=== PATIENT | male | born 1975 | race Hispanic/Latino ===

== ENCOUNTER 2018-12-11 08:06 | Day surgery (SDC) | payer OTHER ==
[2018-12-02 08:46] VITALS: BMI 37.7
[2018-12-11] MEDS ORDERED: Midazolam 2 MG/2 ML VIAL ONE (11:54)
[2018-12-11] MEDS ORDERED: ceFAZolin 1 gm in NS 2 GM/200 ML BAG IVPB ONE ×2 (11:54→21:16)
[2018-12-11] MEDS ORDERED: Propofol 10 mg/ml Inj (20 ML) ONE (11:54)
[2018-12-11] MEDS ORDERED: Rocuronium 10 mg/ml (10 ml) ONE ×2 (12:28→13:29)
[2018-12-11] MEDS ORDERED: Succinylcholine Chloride 20 mg/ml Syr (5 ml) IV ONE (12:28)
[2018-12-11] MEDS ORDERED: Bupivacaine-Epi 0.5%-1:200,000 PF Inj ONE (13:30)
[2018-12-11] MEDS ORDERED: Neostigmine 1:1000 (1 mg/ml) Inj ONE (14:16)
[2018-12-11] MEDS ORDERED: Morphine 4 MG/ML VIAL ONE ×2 (16:11→16:51)
[2018-12-11] MEDS: HYDROmorphone 0.5 mg/0.5 ml ISec IVP PRN ×3 (17:21→17:52)
[2018-12-11] MEDS ORDERED: ceFAZolin IV 2 gm in Dextrose 2 GM/50 ML BAG IVPB STA (20:30)
[2018-12-11 21:23] LABS: BASO % 0.1 % (0.0-2.0); EOS % 0.1 % (0.0-4.0); HEMOGLOBIN 12.6 g/dL (12.0-18.0); LYMPH # 1.1 K/uL (1.0-4.3); LYMPH % 7.8 % (20.0-40.0); MEAN CELL VOLUME 98.6 fL (80.0-94.0); MEAN CORPUSCULAR HEMOGLOBIN 34.1 pg (27.0-31.0); MEAN CORPUSCULAR HGB CONC 34.6 g/dL (33.0-37.0); MEAN PLATELET VOLUME 7.7 fL (7.2-11.7); MONO # 1.1 K/uL (0.0-0.8); MONO % 7.8 % (0.0-10.0); NEUT # 12.1 K/uL (1.8-7.0); NEUT % 84.2 % (50.0-75.0); NRBC % 0.1 % (0.0-2.0); PLATELET COUNT 269 K/uL (130-400); RED CELL DISTRIBUTION WIDTH 13.2 % (11.5-14.5); WHITE BLOOD COUNT 14.4 K/uL (4.8-10.8)
[2018-12-11] MEDS ORDERED: ceFAZolin 2 GM in Sodium Chloride 0.9% 100 ML IVPB STA (21:25)
[2018-12-11 21:45] LABS: LYMPHOCYTE 8 % (20-40); MONOCYTE 9 % (0-10); NEUTROPHIL 83 % (50-75); PLATELET ESTIMATE NORMAL (NORMAL); TOTAL CELLS COUNTED 100
[2018-12-11 21:50] LABS: ALB/GLOB RATIO 1.3 (1.0-2.1); ALBUMIN 4.1 g/dL (3.5-5.0); ALT/SGPT 21 U/L (21-72); AMYLASE 75 U/L (30-110); AST/SGOT 48 U/L (17-59); BLOOD UREA NITROGEN 17 mg/dL (9-20); CALCIUM 8.8 mg/dl (8.6-10.4); GFR NON-AFRICAN AMERICAN > 60; URINE BILIRUBIN NEGATIVE (NEGATIVE); URINE BLOOD NEGATIVE (NEGATIVE); URINE CLARITY Clear (Clear); URINE COLOR Yellow (YELLOW); URINE GLUCOSE (UA) NORMAL (Normal); URINE HYALINE CAST 0-2 /lpf (0-2); URINE LEUKOCYTE ESTERASE NEG Leu/uL (Negative); URINE PROTEIN NEGATIVE (NEGATIVE); URINE UROBILINOGEN NORMAL mg/dL (0.2-1.0)
[2018-12-11] MEDS ORDERED: Bacitracin Ointment 30 GM TUBE TOP ONE (22:21)
[2018-12-11 22:30] LABS: HEPATITIS B SURFACE AG Negative (NEGATIVE)
--- NOTE | 2018-12-11 22:53 | CP.PCM.PN ---
Subjective - Date & Time of Evaluation Date of Evaluation: 12/11/18 Time of Evaluation: 22:26 - Subjective Subjective: I was called by PACU nurse to assess patient secondary to numbness of his chin and also wound of the left lower leg Patient is 42yo M s/p ORIF of left clavicle who is complaining of postop chin numbness prior to discharge. He was seen and assessed. It appears he has a swollen chin with some clean discharge. The swelling is localized around the front chin and does not extend down the neck or mouth. Denies any shortness of breath or dysphagia. There is a small skin breakdown on the right chin where the clean fluid was draining out. Not warm to the touch. Nurse also noticed a skin wound on the left lower leg. It appears to be a skin abrasion of the left proximal fibula about 2x3cm. No bleeding or discharge noticed. Cold compress was applied to the chin follow by bacitracin ointment and dressing. Leg abrasion was dressed with bacitracin and gauze and wrapped with gabrielle bandage. Dr. Pfeiffer was notified of all this findings and agree with the plan. Patient was given the choice of staying overnight for observation ,however, he wanted to go home. He was made aware to return to the hospital if swelling worsens or any other complaints arises. Currently he reports pain 4/10 at the operative site and worsens with movements otherwise no other complaints Objective - Vital Signs/Intake and Output Vital Signs (last 24 hours): Temp Pulse Resp BP Pulse Ox 97.9 F 70 20 144/93 H 98 12/11/18 08:16 12/11/18 08:16 12/11/18 08:16 12/11/18 08:16 12/11/18 08:16 Intake and Output: 12/11/18 12/12/18 18:59 06:59 Intake Total 1700 Balance 1700 - Labs Labs: 12/11/18 21:19 12/11/18 21:19
[2018-12-11 22:56] LABS: HEPATITIS C ANTIBODY NEGATIVE (NEGATIVE)
[2018-12-11 23:24] LABS: HEPATITIS A IGM NEGATIVE (NEGATIVE)
[2018-12-11 23:26] LABS: HEPATITIS B CORE AB NEGATIVE (NEGATIVE)
[2018-12-12 00:02] VITALS: O2SAT 97
[2018-12-12 00:19] VITALS: BP 137/88; PULSE 114; RESP 20; TEMP 99
--- NOTE | 2018-12-12 12:52 | RAD ---
Date of service: 12/11/2018 PROCEDURE: HISTORY: s/p L clavicle ORIF COMPARISON: Comparison made with fluoroscopy study dated 12/11/2018 at 12:46 p.m. TECHNIQUE: Two views of the left clavicle performed FINDINGS: ORIF apparent comminuted fracture left clavicle accomplished by placement of a sideplate attached to the superior margins of the clavicle by multiple threaded screws. The AC joint appears intact IMPRESSION: ORIF comminuted fracture left clavicle as described
--- NOTE | 2018-12-12 12:55 | RAD ---
Date of service: 12/11/2018 PROCEDURE: Intraoperative Fluoroscopy. HISTORY: LEFT CLAVICLE FX FINDINGS: Fluoroscopic assistance was provided. Fluoroscopy time = 77 sec. Radiation dose = 6.16 mGy. Please refer to the operative report from CEASAR Schwartz , MD [facility].
--- NOTE | 2018-12-12 12:58 | RAD ---
Date of service: 12/11/2018 HISTORY: r/o ptx COMPARISON: None available. FINDINGS: LUNGS: Mild atelectasis and or scarring both lower lung roberts left greater than right PLEURA: No significant pleural effusion identified, no pneumothorax apparent. CARDIOVASCULAR: No aortic atherosclerotic calcification present. Heart appears enlarged no pulmonary vascular congestion. OSSEOUS STRUCTURES: ORIF left clavicle. VISUALIZED UPPER ABDOMEN: Normal. OTHER FINDINGS: None. IMPRESSION: Mild atelectasis and/or scarring both lower lung roberts left greater than right
--- NOTE | 2018-12-13 06:35 | PCM.SURG1 ---
Surgeon's Initial Post Op Note - Surgeon's Notes Surgeon: Dilshad Pfeiffer MD [employer] Specialist: Cherise Farrell PA-C Type of Anesthesia: General Endo Pre-Operative Diagnosis: Left shoulder: Displaced, comminuted, segmental mid- shaft clavicle fracture Operative Findings: Left shoulder: Displaced, comminuted, segmental mid-shaft clavicle fracture. (significant interposed soft tissue at fracture fragments that would have most likely caused non-union without surgical intervention, there were significant jose defects) Post-Operative Diagnosis: Left shoulder: Displaced, comminuted, segmental mid-s haft clavicle fracture. (significant interposed soft tissue at fracture fragments that would have most likely caused non-union without surgical intervention, there were significant jose defects) Operation Performed: Left shoulder: #1 Open Reduction and Internal Fixation complex Midshaft Clavicle fracture (complexity modifier added). #2 Bone grafting to jose defects clavicle fracture. #3 Plastics complex closure with soft tissue flap over superior plate, wound measuring approx 10cm Specimen/Specimens Removed: specimen= none. complications= none. Implants=. #1 Synthes 7 hole pre-contoured superior clavicle locking plate with 3.5 and 2.7 locking and non-locking screws. #2 Arthrex 2.5 cc Stimublast allograft putty. Pre and Post-op Exam: I personally examined the pt both in pre-op holding and post-op in PACU. POST-OP PHYSICAL EXAM: surgical dressing c/d/i,. + 5/5 motor strength elbow flex/ext, wrist sup/pron/flex/ext, fingers ext & flex at MCP,PIP,DIP joints, finger abduction/adduction. Sensory intact C5-T2, Axillary/MSC/Radial/Ulnar/Median nerves intact. 2+ RA and UA pulses, BCR all fingers. Denied any SOB or CP, no subjective numbness/tingling Estimated Blood Loss: EBL {In ML}: 50 Blood Products Given: N/A Drains Used: No Drains Post-Op Condition: Good Date of Surgery/Procedure: 12/11/18 Time of Surgery/Procedure: 15:00
--- NOTE | 2018-12-30 12:00 | OP ---
PROCEDURE DATE: 12/11/2018 PREOPERATIVE DIAGNOSIS: Left shoulder displaced, comminuted, segmental midshaft clavicle fracture. POSTOPERATIVE DIAGNOSIS: Left shoulder displaced, comminuted, segmental midshaft clavicle fracture with significant interposed soft tissue at fracture site in between fracture fragments. PROCEDURES: Left shoulder/clavicle: 1. Open reduction and internal fixation complex midshaft clavicle fracture with significant comminution and segmental pattern. 2. Bone grafting two bony defects of clavicle fracture. 3. Plastics, complex closure with soft tissue flap over superior plate, wound measuring approximately 10 cm. SURGEON: Dilshad Pfeiffer MD CAPACITOR TESTER: Cherise Farrell PA-C JUSTIFICATION FOR CAPACITOR TESTER: Cherise Farrell is a certified physician dam tender assistant whose skilled surgical services were an absolute necessity for successful completion of the procedure as he provided skilled surgical assistance with positioning of the patient, positioning of extremity, management of surgical roberts, beach chair positioning, retraction of neurovascular structures, open reduction, placement of temporary fixation hardware, bridge plating, placement of final fixation hardware, protection of underlying brachial plexus and major neurovascular structures while drilling and placement of orthopedic hardware, placement of bone graft, Plastics complex wound closure, fitting and placement of shoulder immobilization sling. Cherise Farrell was present for the entire case and was an absolute necessity for successful completion of the procedure. TYPE OF ANESTHESIA: General endotracheal anesthesia. ESTIMATED BLOOD LOSS: 50 mL. SPECIMENS: None. COMPLICATIONS: None. DRAINS: None. DISPOSITION: The patient was extubated and transferred to PACU in stable condition and tolerated the procedure well. IMPLANTS: 1. DePuy Synthes: A 7-hole precontoured superior clavicle locking plate with 3.5 and 2.7 locking and nonlocking screws. 2. Arthrex 2.5 mL StimuBlast allograft putty. INDICATIONS FOR SURGERY: The patient is a 42-year-old male, right-hand dominant with no significant past medical history, who presents to the office for the first time under my care with a new complaint of left shoulder/clavicle pain and deformity/swelling as well as left-sided rib pain on in my office since injury on 11/11/2018. He states that on 11/11/2018, he fell down a flight of stairs in his building, landing on his left shoulder resulting in immediate 10/10 pain, localized to the clavicle with obvious deformity as well as left-sided upper rib pain. He denies seeing the bone or any numbness or tingling in the left upper extremity. No obvious disruption in blood flow, no weakness distally or change in normal function. He was evaluated at the [facility] ER at the same day and after review of imaging and evaluation by the orthopedic resident on-call, he was diagnosed with a displaced, comminuted, segmental midshaft left clavicle fracture and possible left-sided rib fractures. He was placed in the sling and instructed to follow up with an orthopedic surgeon as an outpatient. Initial presentation in the office on 11/13/2018 yielded a physical exam consistent with an obvious and significant deformity at the left shoulder/clavicle along the midshaft of the clavicle, significant swelling, significant ecchymosis, with skin intact. The neurovascular exam of the left upper extremity was intact with 2+ radial artery pulse and ulnar artery pulse, sensory from C5 to T2 intact including axillary nerve, radial nerve, medial nerve, ulnar nerve, musculocutaneous sensory branches, 5/5 motor strength, elbow flexion/extension, wrist supination/pronation/flexion/extension, all fingers flexion and extension of all joints as well as finger abduction and adduction. He denied any shortness of breath or chest pain, no LOC, no subjective numbness or tingling, no headaches, no nausea or vomiting, no difficulty with breathing. X-rays in the office confirmed left clavicle with a displaced, comminuted, segmental shortened midshaft clavicle fracture with high suspicion for significant interposed soft tissue between the fracture fragments. He was placed in a shoulder immobilizer sling and we had a long discussion about the pros and cons of surgery. There was also a high suspicion for left-sided upper rib fracture despite negative x-rays in the office. He was referred for further detailed imaging of the ribs and the clavicle/shoulder. CT of the left shoulder/clavicle/left upper chest wall done at [facility] on 11/23/2018 was read as: 1. Displaced, comminuted midshaft clavicle fracture. 2. No widening of AC interval. 3. Atelectasis, left lung. 4. Nondisplaced fractures, posterolateral aspect third and fifth ribs. MRI of left shoulder done at [facility] on 11/23/2018 was read as: 1. Midshaft clavicle fracture. 2. Low grade AC joint sprain, AC ligaments intact. 3. Moderate rotator cuff tendinosis/strain. 4. Subacromial/subdeltoid bursitis. 5. Partial rotator cuff tear. Comparison views done in the office of bilateral clavicles revealed significant shortening as well of the fractured left side clavicle compared to the right. After review of the MRI and CT in the office at followup on 12/01/2018, we had a long discussion about treatment options. The followup x-rays done in the office on 12/01/2018 showed no interval change in the fracture fragments with a high-degree of concern that the interposed soft tissue between the fracture fragments was entrapped and that this would lead to a significant nonunion. The patient was laid off from his previous job and was in between jobs at this point, attempting to return to work as soon as possible and was in the middle of interviewing and has been offered jobs. 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 With the concern for a possible nonunion and need for surgery months later, we discussed the indication for open reduction and internal fixation of this displaced, comminuted, segmental, short and midshaft clavicle fracture. He was indicated for the open reduction and internal fixation with the risks, benefits, and alternatives discussed at length with the patient. Risks included, but not limited to infection, neurovascular damage, hardware irritation, and need for future surgery including removal of hardware, nonunion, malunion, failure of hardware, neurovascular damage including injury to the brachial plexus and the subclavian artery and vein, loss of function, loss of limb, pneumothorax and other pulmonary complications, wound complications, stiffness, development of chronic pain and disability, development of blood clots including DVT and PE, anesthesia reactions including . After answering all of his questions, they understood the risks and wished to proceed with surgery. He watched surgical animation videos and diagnosis animation videos and stated they had a good understanding of the procedure as well as the diagnosis. I explained to him that with the significant segmental and comminuted pattern of this midshaft clavicle fracture, there may be a resulting significant bony defect, which would benefit from placement of bone graft for which he agreed to and with consent as well. The rib fractures on the left initially did cause pain with deep inhalation, but after two weeks of rest post injury, he was able to perform deep inhalation without any pain with significant improvement in his rib pain. He was referred to primary care physician for a medical clearance, which did take an extra week delaying from his initial scheduled date of 11/27/2018 to 12/11/2018 as the primary care doctor needed some extra time to provide medical clearance as he did develop a case of bronchitis. Once the bronchitis cleared and we obtained our final medical optimization/clearance, the procedure was scheduled at [facility] on 12/11/2018. PROCEDURE IN DETAIL: The patient was identified in the preoperative holding area and the left shoulder/clavicle was marked for surgery. Once again as described above, the risks, benefits, and alternatives of the procedure was discussed in length with the patient and informed consent was obtained. After a brief discussion with anesthesia staff, the patient was taken to the operating room on a stretcher. Initial time-out was done with the surgeon, anesthesia staff, OR staff, all in agreement with the patient, procedure being done and extremity being operated on. Perioperative IV antibiotics were administered. General anesthesia was administered without any difficulty or complication. The patient was then carefully transferred to the operating room table with the beach chair positioner in the supine position. With all superficial neurovascular structures and head and neck in proper alignment, the patient was then brought into the upright beach chair position. Anesthesia staff confirmed that he was hemodynamically stable and able to tolerate the upright position with no changes in hemodynamic status. The left upper extremity and clavicle area were then prepped and draped in standard sterile fashion. Final time-out was done with the surgeon, anesthesia staff, OR staff, all in agreement with the patient, the procedure being done, and the extremity being operated on. With the goal of providing a thick soft tissue layer above the clavicle plate, the incision was made 2 cm distal to the level of the palpated clavicle. The incision measured approximately 10 cm and was infiltrated with 0.5% Marcaine with epinephrine preservative free. Once the local anesthetic and the epinephrine was injected and took effect, we then proceeded with incision through skin down subcutaneous tissue while maintaining good hemostasis down to level of the platysma fascia. The platysma fascia was sharply incised and we followed this flap of tissue all the way up to the anterior ridge of the clavicle fragments. We began with dissection of the lateral fracture fragment leading up to the AC joint. The anterior deltoid fibers were released as well as the superior trapezius fibers to allow for access to the clavicle. There was some callus formation, but it was clear that there was significant interposed soft tissue at the fracture fragment that would have eventually lead to a nonunion. At this point in time, we are four weeks out from the initial date of injury and there was still significant soft tissue including trapezius and deltoid and clavicular head of the pectoralis that were wedged and entrapped within the fracture fragments that most likely would have resulted in a nonunion. The interposed soft tissue was carefully debrided and the fracture fragments and segmental pattern fragments were carefully released from the surrounding soft tissue. The medial fragment was then carefully dissected out and the ends of the fractures were debrided of all interposed soft tissue and any fibrous growth. With the use of reduction clamps, the medial and lateral fragments were brought into an anatomical reduced position and the segmental fragments were then used to piece together and establish the anatomical clavicle length. A 7-hole precontoured anterior plate from [employer] was trialed and indeed the anterior plate was not long enough and would not provide the contour and shape needed for this surgery, for this case in particular. We then turned to the 7-hole [employer] precontoured locking superior plate, which fit nicely. Fluoroscopic imaging was used to confirm that we had adequate clavicle length and at least three screw holes on the medial and lateral aspects of the fracture as we were proceeding with bridge plating. The lateral aspect of the plate had a cluster of five 2.7 mm locking screws, which will be used as well. The medial screws were placed initially, 3.5 mm nonlocking screws in two of the holes holding the plate in the proper position with the reduction clamp fixating the plate to the lateral fragments. With the plate compressed to the bone itself, the lateral fragment of distal locking holes were then filled with a 2.7 mm nonlocking screw first to compress the plate to the bone followed by four 2.7 mm locking screws and replacing the nonlocking screw with a locking screw as well for five 2.7 mm locking screws placed at the distal cluster in total. A 3.5 mm locking screw was placed on the medial aspect of the fracture and another 3.5 mm screw was placed on the lateral aspect of the fracture. Biplanar fluoroscopic imaging was used to confirm an anatomic reduction of the clavicle in bridge plating form with good hardware placement and screw length assessed to ensure that it was not too long. Throughout the case, my dam tender assistant played a vital role protecting the underlying lung and neurovascular structures, as we were placing superior clavicle plate and drilling from superior to inferior with the underlying structures including the lung and subclavian artery and vein and the brachial plexus endangered. With his assistance, which was of absolute necessity, we were able to protect these vital structures. Without injury to the underlying vital structures, the hardware was placed in good position and confirmed with biplanar fluoroscopic imaging. The fracture fragments at the segmental and comminuted portion of the midshaft clavicle fracture that was being bridged was then secured to the plate with circumferential fiber wire suture. Once the fracture fragments were in good position, a 2.5 mL of StimuBlast bone graft/putty from Arth[employer] was then used to coat the segmental pieces in bone graft with the hope of stimulating healing and providing a good environment for the segmental fracture fragments to heal to each other and to the medial and lateral large fragments. The bone graft was placed after copious irrigation was carried out of the wound and the clavicle fracture itself with the hardware of approximately 2000 mL of normal saline. Final hemostasis was achieved and final biplanar fluoroscopic imaging was taken of the clavicle fracture, anatomic reduction as well as the placement of the superior plate. The wound was then reapproximated by bringing the trapezius insertion to the deltoid and clavicular head of the pectoralis insertion and suturing them to each other as a backup, creating a nice thick superior wall of soft tissue lying above the clavicle plate. The overlying platysma was then brought down with the fascial layer through the anterior surgical wound. Deep tissue was reapproximated with #1 Vicryl suture followed by subcutaneous tissue reapproximated with two plain 0 Vicryl suture followed by three plain 0 Monocryl suture for skin. Sterile dressings were applied followed by the left upper extremity being fit and placed in a shoulder immobilizer sling provided by my office. Once the shoulder immobilizer sling was in good position, the patient was then brought to the supine position on the beach chair positioner and carefully transferred back to his stretcher, where he was extubated successfully without any complications. The patient was then transferred to PACU in stable condition and tolerated the procedure well. He has been given a prescription for Percocet for pain control. He was instructed to be strict nonweightbearing to the left upper extremity and keep it in the shoulder immobilizer sling at all times. He is instructed to keep the dressings clean, dry, and intact until he follows up in my office within one week and already has his postoperative appointment set up. He will contact me with any questions or concerns. EXAMINATION IN PACU: The patient's left upper extremity was examined both preoperatively and postoperatively with no neurovascular change with intact neurovascular status and motor function, 5/5 motor strength, elbow flexion/extension, wrist pronation/supination/flexion/extension, finger flexion and extension at all joints, as well as abduction and adduction. Sensory intact C5 to T2, ulnar nerve/radial nerve/medial nerve/axillary nerve/musculocutaneous nerve sensory branches. 2+ radial artery pulse and ulnar artery pulse. A chest x-ray done in PACU also revealed that there was no interval change of pneumothorax or other visible lung or pleural injury. Prior to the wound closure in the operating room, the anesthesiologist provided us with a Valsalva maneuver with no visible air bubbles or resulting concern for pneumothorax present. Dilshad Pfeiffer MD
== END 2018-12-11 23:40 | disposition home or self-care (01) ==
LOC: C.SDS 08:06
PROVIDERS: ATTEND Student in an Organized Health Care Education/Training Program
DX: S42.022A Displaced fracture of shaft of left clavicle, initial encounter for closed fracture (principal); W10.9XXA Fall (on) (from) unspecified stairs and steps, initial encounter; K21.9 Gastro-esophageal reflux disease without esophagitis; E66.9 Obesity, unspecified
CPT/HCPCS: 23515; 36415; 71045; 73000; 76000; 80053; 80074; 81001; 82150; 85025; 86592; 86703; 86706; J0690; J1170; J2250; J2270; J2405; J2704; J2710; J3010